=== PATIENT | female | born 1985 | race African-American/Black ===

== ENCOUNTER 2016-07-26 22:36 | Emergency (ER) | payer SELFPAY ==
[~2016-07-26] VITALS: Ht 170.2 cm; Wt 72.0 kg
[~2016-07-26 22:36] MED LIST: CARB200T PO; MUPI2%T TOP; TRAM50TA PO
[2016-07-26 22:42] VITALS: PULSE 94; RESP 22; TEMP 99.1; O2SAT 100
[2016-07-26] MEDS ORDERED: DEXTLIQ44 (22:48)
[2016-07-26] MEDS ORDERED: SODIUM CHLORIDE 0.9% FLUSH 10 ML FLUSH IVF PRN (23:00)
[2016-07-26] MEDS ORDERED: LORazepam 2 MG/ML VIAL IV PUSH ONE ×2 (23:00→23:30)
[2016-07-26 23:10] LABS: AUTOMATED NEUTROPHIL # 7.2 TH/MM3 (1.8-7.7); BASOPHIL # 0.1 TH/MM3 (0-0.2); BASOPHIL % 0.6 % (0.0-2.0); EOSINOPHIL % 0.2 % (0.0-4.0); HEMATOCRIT 34.5 % (35.0-46.0); HEMO FLAGS DIFF FINAL; LYMPH % 15.7 % (9.0-44.0); LYMPHOCYTE # 1.5 TH/MM3 (1.0-4.8); MEAN CELL VOLUME 80.2 FL (80.0-100.0); MEAN CORPUSCULAR HEMOGLOBIN 26.8 PG (27.0-34.0); MEAN CORPUSCULAR HGB CONC 33.4 % (32.0-36.0); MONO % 7.3 % (0.0-8.0); NEUT % 76.2 % (16.0-70.0); PLATELET COUNT 341 TH/MM3 (150-450); RED BLOOD COUNT 4.31 MIL/MM3 (4.00-5.30); RED CELL DISTRIBUTION WIDTH 20.1 % (11.6-17.2); WHITE BLOOD COUNT 9.5 TH/MM3 (4.0-11.0)
--- NOTE | 2016-07-26 23:12 | PD ---
HPI Chief Complaint: Cold / Flu Symptoms Time Seen by Provider: 22:57 Travel History International Travel<30 days: No Contact w/Intl Traveler<30days: No Traveled to known affect area: No History of Present Illness HPI Patient is a 31-year-old female presents emergency department by EMS for evaluation of shortness of breath. Patient states she thought she just had a "summer cold" which is been gradually worsening over the past few days. She states that she had fairly significant shortness of breath this evening as well as some tightness in her chest. Patient denies any fevers. Endorses cough and congestion as well as stuffy nose. States she has a history of asthma and anxiety. Denies any history of hormonal contraception use long periods of stasis or long trips. Denies a history of blood clots in her chest or her lungs. Has not tried any interventions prior to arrival. PFSH Past Medical History Anxiety: Yes Diminished Hearing: No Hypertension: Yes Migraines: Yes ?: Not LMP: [id number] : 0 Para: 0 Miscarriage: 0 : 0 Past Surgical History Oral Surgery: Yes (DENTAL) Social History Alcohol Use: No Tobacco Use: Yes (cigars and e-cig) Substance Use: Yes ([facility]) Allergies-Medications (Allergen,Severity, Reaction): Coded Allergies: Lortab (Verified Adverse Reaction, Intermediate, HEADACHE, NAUSEA, VOMITING, 01/06/15) Reported Meds & Prescriptions Reported Meds & Active Scripts Active Tramadol (Tramadol HCl) 50 Mg Tab 50 Mg PO Q6H PRN Carbamazepine 200 Mg Tab 200 Mg PO BID Bactroban 2% Cream (15gm) (Mupirocin) 15 Gm Cr 1 Applic TOP TID 7 Days APPLY TO AFFECTED AREA Reported Day Time Cold-Flu Liquid (D-Methorphan/PE/Acetaminophen) 237 Ml Liquid Review of Systems Except as stated in HPI: all other systems reviewed are Neg Physical Exam Narrative GENERAL: Well-developed well-nourished, anxious, sitting forward mildly uncomfortable. SKIN: Focused skin assessment warm/dry. HEAD: Atraumatic. Normocephalic. EYES: Pupils equal and round. No scleral icterus. No injection or drainage. ENT: No nasal bleeding or discharge. Mucous membranes pink and moist. NECK: Trachea midline. No JVD. CARDIOVASCULAR: Regular rate and rhythm. No murmur appreciated. RESPIRATORY: No accessory muscle use. Clear to auscultation. Breath sounds equal bilaterally. Good air entry bilaterally, no wheezes. No rales. There is some moderate chest wall tenderness particularly on the right side. GASTROINTESTINAL: Abdomen soft, non-tender, nondistended. Hepatic and splenic margins not palpable. MUSCULOSKELETAL: No obvious deformities. No clubbing. No cyanosis. No edema. NEUROLOGICAL: Awake and alert. No obvious cranial nerve deficits. Motor grossly within normal limits. Normal speech. PSYCHIATRIC: Anxious mood and affect.; insight and judgment normal. Data Data Last Documented VS Vital Signs Date Time Temp Pulse Resp B/P Pulse Ox O2 Delivery O2 Flow Rate FiO2 07/27/16 01:27 92 14 144/66 99 Room Air 07/27/16 00:49 21 07/26/16 22:42 99.1 Orders Electrocardiogram (07/26/16 22:58) Basic Metabolic Panel (Bmp) (07/26/16 22:58) Ckmb (Isoenzyme) Profile (07/26/16 22:58) Complete Blood Count With Diff (07/26/16 22:58) Comprehensive Metabolic Panel (07/26/16 22:58) D-Dimer (07/26/16 22:58) Magnesium (Mg) (07/26/16 22:58) Prothrombin Time / Inr (Pt) (07/26/16 22:58) Act Partial Throm Time (Ptt) (07/26/16 22:58) Troponin I (07/26/16 22:58) Chest, Single Ap (07/26/16 22:58) Ecg Monitoring (07/26/16 22:58) Iv Access Insert/Monitor (07/26/16 22:58) Oximetry (07/26/16 22:58) Oxygen Administration (07/26/16 22:58) Sodium Chloride 0.9% Flush (Ns Flush) (07/26/16 23:00) Lorazepam Inj (Ativan Inj) (07/26/16 23:00) Lorazepam Inj (Ativan Inj) (07/26/16 23:30) Albuterol-Ipratropium Neb (Duoneb Neb) (07/26/16 23:30) Ct Pulmonary Angiogram (07/26/16 ) Iohexol 350 Inj (Omnipaque 350 Inj) (07/27/16 00:51) Labs Laboratory Tests Test 07/26/16 23:00 White Blood Count 9.5 TH/MM3 Red Blood Count 4.31 MIL/MM3 Hemoglobin 11.5 GM/DL Hematocrit 34.5 % Mean Corpuscular Volume 80.2 FL Mean Corpuscular Hemoglobin 26.8 PG Mean Corpuscular Hemoglobin 33.4 % Concent Red Cell Distribution Width 20.1 % Platelet Count 341 TH/MM3 Mean Platelet Volume 8.8 FL Neutrophils (%) (Auto) 76.2 % Lymphocytes (%) (Auto) 15.7 % Monocytes (%) (Auto) 7.3 % Eosinophils (%) (Auto) 0.2 % Basophils (%) (Auto) 0.6 % Neutrophils # (Auto) 7.2 TH/MM3 Lymphocytes # (Auto) 1.5 TH/MM3 Monocytes # (Auto) 0.7 TH/MM3 Eosinophils # (Auto) 0.0 TH/MM3 Basophils # (Auto) 0.1 TH/MM3 CBC Comment DIFF FINAL Differential Comment Prothrombin Time 11.4 SEC Prothromb Time International 1.0 RATIO Ratio Activated Partial 34.4 SEC Thromboplast Time D-Dimer Quantitative (PE/DVT) 0.61 MG/L FEU Sodium Level 139 MEQ/L Potassium Level 3.2 MEQ/L Chloride Level 105 MEQ/L Carbon Dioxide Level 22.0 MEQ/L Anion Gap 12 MEQ/L Blood Urea Nitrogen 5 MG/DL Creatinine 1.04 MG/DL Estimat Glomerular Filtration 74 ML/MIN Rate Random Glucose 77 MG/DL Calcium Level 9.1 MG/DL Magnesium Level 1.7 MG/DL Total Bilirubin 0.2 MG/DL Aspartate Amino Transf 19 U/L (AST/SGOT) Alanine Aminotransferase 14 U/L (ALT/SGPT) Alkaline Phosphatase 83 U/L Total Creatine Kinase 83 U/L Troponin I LESS THAN 0.02 NG/ML Total Protein 8.3 GM/DL Albumin 4.0 GM/DL MDM Medical Decision Making Medical Screen Exam Complete: Yes Emergency Medical Condition: Yes Interpretation(s) EKG shows normal sinus rhythm at a rate of 87, normal axis and normal R-wave progression. No concerning ST-T changes. Intervals within normal limits. This is a normal EKG. Differential Diagnosis Asthma exacerbation, PE, anxiety attack, ACS highly unlikely. Narrative Course Patient roomed in the emergency department, d-dimer weakly at 0.6. CT PE examination ordered shows no abnormality.. EKG troponin basic labs are reassuring. Was given duo neb and Ativan. On reassessment she is feeling significant really better after Ativan. Lung sounds were clear. Initial workup other than that weakly positive d-dimer was negative. Discussed follow-up with primary care physician and [facility]. Discussed return to ED criteria. She stable for discharge at this time. Diagnosis Primary Impression: Shortness of breath Referrals: [facility] Additional Instructions: Follow-up with the [facility] or your primary care physician. Disposition: 01 DISCHARGE HOME Condition: Stable Wilfredo Brown MD July 26, 2016 23:12
--- NOTE | 2016-07-26 23:25 | RADRPT ---
EXAM DATE/TIME: 07/26/2016 22:55 [facility] COMPARISON: No previous studies available for comparison. INDICATIONS : SOB starting tonight. MEDICAL HISTORY : Hypertension. SURGICAL HISTORY : None. ENCOUNTER: Initial ACUITY: 1 day PAIN SCORE: 6/10 LOCATION: Bilateral chest FINDINGS: A single view of the chest demonstrates the lungs to be symmetrically aerated without evidence of mas s, infiltrate or effusion. The cardiomediastinal contours are unremarkable. Osseous structures are intact. CONCLUSION: Normal examination. Matt Green MD on July 26, 2016 at 23:24 Board Certified Radiologist. This report was verified electronically.
[2016-07-26] MEDS ORDERED: RESP: ALBUTEROL 2.5 MG/IPRATROPIUM 0.5 MG NEB (SCH) NEB ONE (23:30)
[2016-07-26 23:37] LABS: ANION GAP 12 MEQ/L (5-15); AST (GOT) 19 U/L (15-37); BLOOD UREA NITROGEN 5 MG/DL (7-18); CHLORIDE 105 MEQ/L (98-107); GLOMERULAR FILTRATION RATE 74 ML/MIN (>89); MAGNESIUM 1.7 MG/DL (1.5-2.5); POTASSIUM 3.2 MEQ/L (3.5-5.1); SODIUM (NA) 139 MEQ/L (136-145)
[2016-07-26 23:42] LABS: APTT (PATIENT) 34.4 SEC (24.3-30.1); PROTHROMBIN TIME - PATIENT 11.4 SEC (9.8-11.6)
[2016-07-26 23:46] LABS: ALKALINE PHOSPHATASE 83 U/L (45-117); ALT (GPT) 14 U/L (10-53); TOTAL BILIRUBIN ADULT 0.2 MG/DL (0.2-1.0)
[2016-07-26 23:47] LABS: CREATINE KINASE 83 U/L (26-192)
[2016-07-27 00:35] VITALS: BP 136/68; PULSE 89; RESP 18; O2SAT 99
[2016-07-27 00:49] VITALS: O2SAT 99
[2016-07-27] MEDS ORDERED: IOHEXOL 350 MG/ML 10 ML VIAL (for RAD DIAG) IV ONE (00:51)
--- NOTE | 2016-07-27 00:51 | RADRPT ---
EXAM DATE/TIME: 07/27/2016 00:27 [facility] COMPARISON: No previous studies available for comparison. INDICATIONS : Shortness of brreath IV CONTRAST: 70 cc Omnipaque 350 (iohexol) IV RADIATION DOSE: 19.23 CTDIvol (mGy) MEDICAL HISTORY : Hypertension. SURGICAL HISTORY : None. ENCOUNTER: Initial ACUITY: 1 day PAIN SCALE: 5/10 LOCATION: Chest TECHNIQUE: Volumetric scanning of the chest was performed using a pulmonary embolism protocol MIP images were re constructed. Using automated exposure control and adjustment of the mA and/or kV according to patien t size, radiation dose was kept as low as reasonably achievable to obtain optimal diagnostic quality images. FINDINGS: PULMONARY ARTERIES: No filling defects are seen in the pulmonary arteries through the segmental level. LUNGS: There is no consolidation or pneumothorax . No concerning pulmonary nodule is visualized. PLEURAE: There is no pleural thickening or pleural effusion. MEDIASTINUM: There is good visualization of the great vessels of the middle mediastinum. No evidence of mediastin al or hilar adenopathy/mass. MUSCULOSKELETAL: Within normal limits for patient age. MISCELLANEOUS: The visualized upper abdominal organs demonstrate no acute abnormality. CONCLUSION: Normal examination. Matt Green MD on July 27, 2016 at 0:49 Board Certified Radiologist. This report was verified electronically.
[2016-07-27 01:27] VITALS: BP 144/66; PULSE 92; RESP 14; O2SAT 99
--- NOTE | 2016-07-27 16:30 | EKG ---
Date Performed: 07/26/2016 Time Performed: 23:10:47 PTAGE: 31 years EKG: Sinus rhythm NORMAL ECG Since PREVIOUS TRACING 01/06/2015, no significant change. PREVIOUS TRACIN01/06/2015 02.46 DOCTOR: Zach Calderon Interpretating Date/Time 07/27/2016 16:30:16
== END 2016-07-27 01:57 | disposition home or self-care (01) ==
LOC: NEPD 22:36
DX: R06.02 Shortness of breath (principal); I10 Essential (primary) hypertension; F17.290 Nicotine dependence, other tobacco product, uncomplicated; Z79.899 Other long term (current) drug therapy
CPT/HCPCS: 71010; 71275; 80053; 82550; 83735; 84484; 85025; 85379; 85610; 85730; 93005; 94664; 96374; 99285; J2060; Q9967

== ENCOUNTER 2016-10-03 20:27 | Emergency (ER) | payer SELFPAY ==
[~2016-10-03] VITALS: Ht 170.2 cm; Wt 75.0 kg
[~2016-10-03 20:27] MED LIST changes: +DEXTLIQ44
[2016-10-03 20:29] VITALS: BP 131/86; PULSE 88; RESP 20; TEMP 98.3; O2SAT 98
[2016-10-03] MEDS ORDERED: SODIUM CHLOR 0.9% 1000 ML INJ 1,000 ML IV SCH (22:28)
[2016-10-03] MEDS ORDERED: ONDANSETRON HCL 4 MG/2 ML VIAL IVP ONE (22:30)
[2016-10-03] MEDS ORDERED: DICYCLOMINE HCL 20 MG/2 ML VIAL IM ONE (22:30)
[2016-10-03] MEDS ORDERED: SODIUM CHLORIDE 0.9% FLUSH 10 ML FLUSH IV FLUSH PRN (22:30)
--- NOTE | 2016-10-03 22:35 | PD ---
HPI Chief Complaint: Abdominal Pain Time Seen by Provider: 22:28 Travel History International Travel<30 days: No Contact w/Intl Traveler<30days: No Traveled to known affect area: No History of Present Illness HPI This is a 31-year-old female with no past medical history, presents today with points to left sided abdominal pain with radiation to her left flank. Patient states it started yesterday. She reports it as crampy in nature. She reports associated loose watery stools. She states she saw blood in her stool today. She denies any fevers or chills. She does report feeling weak. She denies a previous history of pain like this. She reports nausea with no vomiting. She denies any urinary symptoms i.e., dysuria, frequency. There are no other complaints time my examination. PFSH Past Medical History Anxiety: Yes Diminished Hearing: No Hypertension: Yes Migraines: Yes ?: Not LMP: 09/14/16 : 0 Para: 0 Miscarriage: 0 : 0 Past Surgical History Oral Surgery: Yes (DENTAL) Social History Alcohol Use: No Tobacco Use: Yes (cigars and e-cig) Substance Use: Yes ([facility]) Allergies-Medications (Allergen,Severity, Reaction): Coded Allergies: Lortab (Verified Adverse Reaction, Intermediate, HEADACHE, NAUSEA, VOMITING, 01/06/15) Reported Meds & Prescriptions Reported Meds & Active Scripts Active Cipro (Ciprofloxacin HCl) 500 Mg Tab 500 Mg PO BID Flagyl (Metronidazole) 500 Mg Tab 500 Mg PO TID Review of Systems Except as stated in HPI: all other systems reviewed are Neg General / Constitutional: No: Fever, Chills HENT: Positive: Lightheadedness, No: Headaches, Neck Pain Cardiovascular: No: Chest Pain or Discomfort, Palpitations, Irregular Rhythm Respiratory: No: Cough, Shortness of Breath Gastrointestinal: Positive: Nausea, Diarrhea, Abdominal Pain (left lateral), Other, No: Vomiting Genitourinary: Positive: Flank Pain (left), No: Frequency, Dysuria Musculoskeletal: No: Weakness, Pain Neurologic: No: Weakness, Dizziness, Headache Physical Exam Narrative GENERAL: Well-nourished, well-developed patient vomited in no acute distress. SKIN: Focused skin assessment warm/dry. HEAD: Normocephalic/atraumatic. EYES: No scleral icterus. No injection or drainage. NECK: Supple, trachea midline. No JVD or lymphadenopathy. CARDIOVASCULAR: Regular rate and rhythm without murmurs, gallops, or rubs. RESPIRATORY: Breath sounds equal bilaterally. No accessory muscle use. GASTROINTESTINAL: Abdomen soft, non-tender, nondistended. No rebound or guarding. Subjective pain in the left lateral and lower abdominal area. MUSCULOSKELETAL: No cyanosis, or edema. BACK: Nontender without obvious deformity. No CVA tenderness. Subjective pain in her left lower abdominal area that radiates to her left flank. NEUROLOGICAL: Awake and alert. Cranial nerves II through XII intact. Motor grossly within normal limits. Five out of 5 muscle strength in all muscle groups. Normal speech. Data Data Last Documented VS Vital Signs Date Time Temp Pulse Resp B/P Pulse Ox O2 Delivery O2 Flow Rate FiO2 10/04/16 00:25 62 18 142/94 100 Room Air 10/03/16 20:29 98.3 Orders Complete Blood Count With Diff (10/03/16 22:28) Comprehensive Metabolic Panel (10/03/16 22:28) Lipase (10/03/16 22:28) Urinalysis - C+S If Indicated (10/03/16 22:28) Iv Access Insert/Monitor (10/03/16 22:28) Ecg Monitoring (10/03/16 22:28) Oximetry (10/03/16 22:28) Ondansetron Inj (Zofran Inj) (10/03/16 22:30) Sodium Chlor 0.9% 1000 Ml Inj (Ns 1000 M (10/03/16 22:28) Sodium Chloride 0.9% Flush (Ns Flush) (10/03/16 22:30) Dicyclomine Inj (Bentyl Inj) (10/03/16 22:30) Ed Urine Pregnancytest Poc (10/03/16 22:28) Ct Abd/Pel W Iv Contrast(Rout) (10/03/16 23:47) Oral Contrast - Adult (10/03/16 23:49) Diatrizoate Liq ( Gastroview Liq) (10/03/16 23:55) Diatrizoate Liq ( Gastrocash Liq) (10/03/16 23:55) Iohexol 350 Inj (Omnipaque 350 Inj) (10/04/16 01:20) Ciprofloxacin (Cipro) (10/04/16 03:15) Metronidazole (Flagyl) (10/04/16 03:15) Mandatory Outpatient Referral (10/04/16 03:03) Labs Laboratory Tests Test 10/03/16 10/03/16 23:00 23:20 Urine Color YELLOW Urine Turbidity CLEAR Urine pH 5.5 Urine Specific [place] 1.009 Urine Protein NEG mg/dL Urine Glucose (UA) NEG mg/dL Urine Ketones 10 mg/dL Urine Occult Blood NEG Urine Nitrite NEG Urine Bilirubin NEG Urine Urobilinogen LESS THAN 2.0 MG/DL Urine Leukocyte Esterase LARGE Urine RBC 3 /hpf Urine WBC 6 /hpf Urine Squamous Epithelial 4 /hpf Cells Urine Mucus FEW /lpf Microscopic Urinalysis Comment CULT NOT INDICATED White Blood Count 10.4 TH/MM3 Red Blood Count 4.89 MIL/MM3 Hemoglobin 12.8 GM/DL Hematocrit 39.9 % Mean Corpuscular Volume 81.5 FL Mean Corpuscular Hemoglobin 26.1 PG Mean Corpuscular Hemoglobin 32.1 % Concent Red Cell Distribution Width 20.5 % Platelet Count 352 TH/MM3 Mean Platelet Volume 8.8 FL Neutrophils (%) (Auto) 66.9 % Lymphocytes (%) (Auto) 26.2 % Monocytes (%) (Auto) 5.6 % Eosinophils (%) (Auto) 0.7 % Basophils (%) (Auto) 0.6 % Neutrophils # (Auto) 6.9 TH/MM3 Lymphocytes # (Auto) 2.7 TH/MM3 Monocytes # (Auto) 0.6 TH/MM3 Eosinophils # (Auto) 0.1 TH/MM3 Basophils # (Auto) 0.1 TH/MM3 CBC Comment DIFF FINAL Differential Comment Sodium Level 136 MEQ/L Potassium Level 4.6 MEQ/L Chloride Level 102 MEQ/L Carbon Dioxide Level 23.2 MEQ/L Anion Gap 11 MEQ/L Blood Urea Nitrogen 7 MG/DL Creatinine 0.92 MG/DL Estimat Glomerular Filtration 85 ML/MIN Rate Random Glucose 74 MG/DL Calcium Level 9.3 MG/DL Total Bilirubin 0.4 MG/DL Aspartate Amino Transf 32 U/L (AST/SGOT) Alanine Aminotransferase 12 U/L (ALT/SGPT) Alkaline Phosphatase 80 U/L Total Protein 8.8 GM/DL Albumin 4.0 GM/DL Lipase 97 U/L MDM Medical Decision Making Medical Screen Exam Complete: Yes Emergency Medical Condition: Yes Interpretation(s) Last 24 hours Impressions Abdomen/Pelvis CT 10/03/16 1087 Signed Impressions: Service Date/Time: Tuesday, October 04, 2016 01:10 - CONCLUSION: 1. Wall thickening of descending colon characteristic of infectious or inflammatory colitis 2. Markedly enlarged fibroid uterus Junior Villanueva MD Differential Diagnosis Diverticulitis versus colitis versus gastroenteritis Narrative Course 31-year-old female presents with abdominal pain and lower left quadrant. Patient reports it radiates to her back. She reports watery stool with blood in it. Patient was heme positive here with Hemoccult testing. CT scan shows colitis. Given this, she'll be treated with Cipro and Flagyl for 10 days. He' ll be a mandatory referral placed for her for a GI physician. She is instructed to return if she does any worsening symptoms. She is also instructed to have a bland diet and advance as tolerated. Procedures Procedure Narrative Patient was able to provide a liquidy stool that was heme positive. Diagnosis Primary Impression: Colitis Additional Instructions: [place] diet, advance as tolerated. He will receive a call from a nurse for a mandatory referral to the gastroenterology doctors. Med/Other Pt SpecificInfo: Prescription(s) given Scripts Ciprofloxacin (Cipro)500 Mg [id number] Mg PO BID #20 TAB Ref 0 Prov:He Delong MD 10/04/16 Metronidazole (Flagyl)500 Mg [id number] Mg PO TID #30 TAB Ref 0 Prov:He Delong MD 10/04/16 Disposition: DISCHARGE HOME Condition: Stable He Delong MD Oct 03, 2016 22:35
[2016-10-03 23:28] VITALS: O2SAT 98
[2016-10-03 23:31] VITALS: BP 135/83; PULSE 54; RESP 18; O2SAT 100
[2016-10-03 23:40] LABS: AUTOMATED NEUTROPHIL # 6.9 TH/MM3 (1.8-7.7); BASOPHIL # 0.1 TH/MM3 (0-0.2); BASOPHIL % 0.6 % (0.0-2.0); EOSINOPHIL # 0.1 TH/MM3 (0-0.4); EOSINOPHIL % 0.7 % (0.0-4.0); HEMATOCRIT 39.9 % (35.0-46.0); HEMO FLAGS DIFF FINAL; LYMPH % 26.2 % (9.0-44.0); LYMPHOCYTE # 2.7 TH/MM3 (1.0-4.8); MEAN CELL VOLUME 81.5 FL (80.0-100.0); MEAN CORPUSCULAR HEMOGLOBIN 26.1 PG (27.0-34.0); MEAN CORPUSCULAR HGB CONC 32.1 % (32.0-36.0); MONO % 5.6 % (0.0-8.0); NEUT % 66.9 % (16.0-70.0); PLATELET COUNT 352 TH/MM3 (150-450); RED BLOOD COUNT 4.89 MIL/MM3 (4.00-5.30); RED CELL DISTRIBUTION WIDTH 20.5 % (11.6-17.2); WHITE BLOOD COUNT 10.4 TH/MM3 (4.0-11.0)
[2016-10-03] MEDS ORDERED: DIATRIZOATE MEGLUM/DIATRIZOATE SOD 9 ML CUP ONE ×2 (23:55)
[2016-10-04 00:14] LABS: BLOOD, URINE NEG (NEG); COMMENT (UR) CULT NOT INDICATED; CULTURE IF INDICATED CULT NOT INDICATED; GLUCOSE,URINE NEG (NEG); KETONE, URINE 10 mg/dL (NEG); MUCUS URINE FEW /lpf (OCC); NITRITE,URINE NEG (NEG); PH, URINE 5.5 (5.0-8.5); SQUAMOUS EPITHELIAL CELL URINE 4 /hpf (0-5); URINE COLOR YELLOW (YELLW/STRAW)
[2016-10-04 00:18] LABS: ALKALINE PHOSPHATASE 80 U/L (45-117); TOTAL BILIRUBIN ADULT 0.4 MG/DL (0.2-1.0)
[2016-10-04 00:25] VITALS: BP 142/94; PULSE 62; RESP 18; O2SAT 100
[2016-10-04 00:27] LABS: ALT (GPT) 12 U/L (10-53); ANION GAP 11 MEQ/L (5-15); AST (GOT) 32 U/L (15-37); BICARBONATE 23.2 MEQ/L (21.0-32.0); BLOOD UREA NITROGEN 7 MG/DL (7-18); CHLORIDE 102 MEQ/L (98-107); GLOMERULAR FILTRATION RATE 85 ML/MIN (>89); POTASSIUM 4.6 MEQ/L (3.5-5.1); SODIUM (NA) 136 MEQ/L (136-145)
[2016-10-04] MEDS ORDERED: IOHEXOL 350 MG/ML 10 ML VIAL (for RAD DIAG) IV ONE (01:20)
--- NOTE | 2016-10-04 02:10 | RADRPT ---
EXAM DATE/TIME: 10/04/2016 01:10 [facility] COMPARISON: No previous studies available for comparison. INDICATIONS : Right side abdominal pain and blood in stool. IV CONTRAST: 90 cc Omnipaque 350 (iohexol) IV ORAL CONTRAST: Prescribed oral contrast ingested. RADIATION DOSE: 6.84 CTDIvol (mGy) MEDICAL HISTORY : Hypertension. SURGICAL HISTORY : None. ENCOUNTER: Initial ACUITY: 1 day PAIN SCALE: 8/10 LOCATION: Right abdomen. TECHNIQUE: Volumetric scanning of the abdomen and pelvis was performed. Using automated exposure control and ad justment of the mA and/or kV according to patient size, radiation dose was kept as low as reasonably achievable to obtain optimal diagnostic quality images. DICOM format image data is available electro nically for review and comparison. FINDINGS: Examination of the lung bases demonstrates no abnormality. No pleural fluid is identified. No pulmona ry nodules are present. Multiple small subcentimeter hepatic cysts are present. The spleen is normal in size and free of focal defects. The gallbladder and pancreas are unremarkable. No intrahepatic or extrahepatic ductal dilatation is seen. The adrenal glands and kidneys appear normal bilaterally. No hydronephrosis or mass lesions are identified. There is diffuse wall thickening involving the colon f rom the splenic flexure to the sigmoid colon. There is no evidence of abscess. No free fluid is ident ified. Examination of the pelvis demonstrates no evidence of free fluid or pelvic mass. No abnormally enlarg ed inguinal or retroperitoneal lymph nodes are present. The bladder is unremarkable. The uterus is ma rkedly enlarged measuring 13 x 9 CM characteristic of fibroids. CONCLUSION: 1. Wall thickening of descending colon characteristic of infectious or inflammatory colitis 2. Markedly enlarged fibroid uterus Junior Villanueva MD on October 04, 2016 at 2:06 Board Certified Radiologist. This report was verified electronically.
[2016-10-04] MEDS ORDERED: METR-1 PO (03:02)
[2016-10-04] MEDS ORDERED: CIPR-9 PO (03:02)
[2016-10-04 03:10] VITALS: BP 135/88
[2016-10-04] MEDS ORDERED: CIPROFLOXACIN 500 MG TAB PO ONE (03:15)
[2016-10-04] MEDS ORDERED: metroNIDAZOLE 500 MG TAB PO ONE (03:15)
== END 2016-10-04 03:18 | disposition home or self-care (01) ==
LOC: NEPE 20:27
DX: K52.9 Noninfective gastroenteritis and colitis, unspecified (principal); I10 Essential (primary) hypertension; F17.290 Nicotine dependence, other tobacco product, uncomplicated; F12.10 Cannabis abuse, uncomplicated
CPT/HCPCS: 74177; 80053; 81001; 83690; 84703; 85025; 96374; 99285; J0500; J2405; J7030; Q9963; Q9967

== ENCOUNTER 2017-02-09 02:07 | Emergency (ER) | payer SELFPAY ==
[~2017-02-09 02:07] MED LIST changes: -CARB200T PO; +CIPR-9 PO; -DEXTLIQ44; +METR-1 PO; -MUPI2%T TOP; -TRAM50TA PO
[2017-02-09 02:10] VITALS: BP 132/89; PULSE 116; RESP 16; TEMP 98.9; O2SAT 100
[2017-02-09] MEDS ORDERED: MORPHINE SULFATE 4 MG/ML INJ IV PUSH ONE (02:45)
[2017-02-09] MEDS ORDERED: DEXAMETHASONE SOD PHOS 20 MG/5 ML VIAL IV PUSH ONE (02:45)
[2017-02-09] MEDS ORDERED: ONDANSETRON HCL 4 MG/2 ML VIAL IV PUSH ONE (02:45)
[2017-02-09] MEDS ORDERED: CARBXR200 PO (02:53)
[2017-02-09] MEDS ORDERED: TRAM50 PO (02:53)
--- NOTE | 2017-02-09 02:54 | PD ---
HPI . Left facial pain Chief Complaint: Facial Pain or Swelling Time Seen by Provider: 02:40 Travel History International Travel<30 days: No Contact w/Intl Traveler<30days: No Traveled to known affect area: No History of Present Illness HPI Patient presents with a chief complaint of left facial pain. Onset was at 3 PM. She states that she had similar pain approximately a year ago and was diagnosed with trigeminal neuralgia. She states that the pain today is exactly the same. She describes it as a sharp, shooting, shocklike pain on the left side of her face. The pain is severe. The pain is actually exacerbated by laying on her right cheek. She took a leftover Tegretol at about 10 PM with no relief of her pain. She states that she was treated with Tegretol and possibly steroids which she had the seat year ago. She states that she had no further problems following the initiation of therapy until today. PFSH Past Medical History Anxiety: Yes Diminished Hearing: No Hypertension: Yes Migraines: Yes Tetanus Vaccination: Unknown Influenza Vaccination: No ?: Not LMP: 02/08/2017 : 0 Para: 0 Miscarriage: 0 : 0 Past Surgical History Oral Surgery: Yes (DENTAL) Social History Alcohol Use: No Tobacco Use: Yes (cigars and e-cig) Substance Use: Yes (MARAJUANA) Allergies-Medications (Allergen,Severity, Reaction): Coded Allergies: acetaminophen (Unverified Adverse Reaction, Intermediate, HEADACHE, NAUSEA , VOMITING, 02/09/17) hydrocodone (Unverified Adverse Reaction, Intermediate, HEADACHE, NAUSEA, VOMITING, 02/09/17) Reported Meds & Prescriptions Reported Meds & Active Scripts Active Review of Systems Except as stated in HPI: all other systems reviewed are Neg Physical Exam Narrative GENERAL: Awake and alert. She is tearful. SKIN: Warm and dry. HEAD: Normocephalic/atraumatic. EYES: Pupils are equal. Extraocular movements are intact. ENT: Percussion of the left side of her face just inferior to the TMJ reproduces shocklike pain in her face. NECK: Normal range of motion. CARDIOVASCULAR: Regular rate and rhythm. RESPIRATORY: Nonlabored respirations. MUSCULOSKELETAL: Atraumatic. NEUROLOGICAL: Nonfocal. PSYCHIATRIC: Appropriate mood and affect. Data Data Last Documented VS Vital Signs Date Time Temp Pulse Resp B/P (MAP) Pulse Ox O2 Delivery O2 Flow Rate FiO2 12/10/17 02:10 98.9 116 16 132/89 (103) 100 Room Air Orders Orders Dexamethasone Inj (Decadron Inj) (02/09/17 02:45) Morphine Inj (Morphine Inj) (02/09/17 02:45) Ondansetron Inj (Zofran Inj) (02/09/17 02:45) ^ Saline Lock (02/09/17 02:40) MDM Medical Decision Making Medical Screen Exam Complete: Yes Emergency Medical Condition: Yes Medical Record Reviewed: Yes (patient was seen here on 02/01/16 with the same complaints. She was treated with Tegretol 200 mg twice a day and tramadol as needed for pain.) Differential Diagnosis Differential diagnosis includes but is not limited to TMJ, dental pain, shingles , trigeminal neuralgia Narrative Course This patient presents with the acute onset of left facial pain. The pain feels just like previous trigeminal neuralgia. She will be treated emergency department with IV morphine, Decadron and Zofran. I will discharge her with prescriptions for Tegretol and Ultram. Diagnosis Primary Impression: Trigeminal neuralgia of left side of face Referrals: Bo Gómez MD Patient Instructions: General Instructions, Narcotic given in the ED, Trigeminal Neuralgia (DC) Med/Other Pt SpecificInfo: Prescription(s) given Scripts Tramadol (Ultram) 50 Mg Tab 50 MG PO Q4H Y for PAIN, #12 TAB 0 Refills Prov: Lisa Soto MD 02/09/17 Carbamazepine ER 12 HR (Tegretol-Xr 12 HR) 200 Mg Tab 200 MG PO Q12HR for facial pain, #60 TAB 0 Refills Prov: Lisa Soto MD 02/09/17 Disposition: 01 DISCHARGE HOME Condition: Stable Lisa Soto MD Feb 09, 2017 02:54
[2017-02-09 03:40] VITALS: BP 117/62
== END 2017-02-09 03:48 | disposition home or self-care (01) ==
LOC: NEPE 02:07
DX: G50.0 Trigeminal neuralgia (principal); F41.9 Anxiety disorder, unspecified; I10 Essential (primary) hypertension; F17.290 Nicotine dependence, other tobacco product, uncomplicated; Z88.6 Allergy status to analgesic agent; Z88.5 Allergy status to narcotic agent
CPT/HCPCS: 96374; 96375; 99284; J1100; J2270; J2405

== ENCOUNTER 2017-02-11 21:23 | Emergency (ER) | payer SELFPAY ==
[~2017-02-11] VITALS: Ht 167.6 cm; Wt 76.0 kg
[~2017-02-11 21:23] MED LIST changes: +CARBXR200 PO; -CIPR-9 PO; -METR-1 PO; +TRAM50 PO
[2017-02-11 21:25] VITALS: BP 144/98; PULSE 109; RESP 18; TEMP 98.3; O2SAT 100
[2017-02-11] MEDS ORDERED: PROCHLORPERAZINE INJ 10 MG/2 ML VIAL IV PUSH ONE (22:00)
[2017-02-11] MEDS ORDERED: SODIUM CHLOR 0.9% 1000 ML INJ 1,000 ML IV ONE (22:00)
[2017-02-11] MEDS ORDERED: diphenhydrAMINE HCL 50 MG/ML VIAL IV PUSH ONE (22:00)
[2017-02-11] MEDS ORDERED: KETOROLAC TROMETHAMINE 30 MG/ML (IVP) VIAL IV PUSH ONE (22:00)
[2017-02-11 22:41] LABS: AUTOMATED NEUTROPHIL # 6.4 TH/MM3 (1.8-7.7); BASOPHIL % 0.2 % (0.0-2.0); EOSINOPHIL % 0.3 % (0.0-4.0); HEMO FLAGS DIFF FINAL; LYMPH % 33.1 % (9.0-44.0); LYMPHOCYTE # 3.6 TH/MM3 (1.0-4.8); MEAN CELL VOLUME 79.2 FL (80.0-100.0); MEAN CORPUSCULAR HEMOGLOBIN 25.9 PG (27.0-34.0); MEAN CORPUSCULAR HGB CONC 32.7 % (32.0-36.0); MONO % 6.8 % (0.0-8.0); NEUT % 59.6 % (16.0-70.0); PLATELET COUNT 525 TH/MM3 (150-450); RED BLOOD COUNT 4.16 MIL/MM3 (4.00-5.30); WHITE BLOOD COUNT 10.8 TH/MM3 (4.0-11.0)
[2017-02-11 23:11] LABS: ALKALINE PHOSPHATASE 75 U/L (45-117); ALT (GPT) 14 U/L (10-53); ANION GAP 9 MEQ/L (5-15); AST (GOT) 15 U/L (15-37); BICARBONATE 25.7 MEQ/L (21.0-32.0); BLOOD UREA NITROGEN 10 MG/DL (7-18); CHLORIDE 102 MEQ/L (98-107); GLOMERULAR FILTRATION RATE 94 ML/MIN (>89); SODIUM (NA) 137 MEQ/L (136-145); TOTAL BILIRUBIN ADULT 0.2 MG/DL (0.2-1.0)
[2017-02-11 23:12] VITALS: RESP 16
[2017-02-11 23:18] LABS: POTASSIUM 2.9 MEQ/L (3.5-5.1)
[2017-02-11] MEDS ORDERED: POTASSIUM CHLORIDE 10 MEQ CONTROLLED RELEASE TAB PO ONE (23:30)
[2017-02-11] MEDS ORDERED: FIORINAL2 PO (23:46)
--- NOTE | 2017-02-11 23:46 | PD ---
HPI Chief Complaint: Neuro Symptoms/ Deficits Time Seen by Provider: 21:42 Travel History International Travel<30 days: No Contact w/Intl Traveler<30days: No Traveled to known affect area: No History of Present Illness HPI Patient is a 31 year old female who comes in complaining of pain to the left side of her face. She says she was told she had trigeminal neuralgia year ago when she had similar symptoms. She is given Tegretol and tramadol at the time. She says after the event, she didn't have any further problems with that, so she has not been taking any medications for it. She also has history of migraines in the past. She was here a few days ago for the same thing and was given Tylenol and tramadol, which she says are not helping. She says the pain is behind her left eye and her left side of her neck. She does admit to being under a lot of stress currently. She denies fever or chills. She denies any head trauma. PFSH Past Medical History Anxiety: Yes Diminished Hearing: No Hypertension: Yes Immunizations Current: Yes Migraines: Yes Tetanus Vaccination: Unknown Influenza Vaccination: No ?: Not LMP: 02/08/17 : 0 Para: 0 Miscarriage: 0 : 0 Past Surgical History Oral Surgery: Yes (DENTAL) Social History Alcohol Use: No Tobacco Use: Yes (cigars and e-cig) Sub[facility] Use: Yes ([facility]) Allergies-Medications (Allergen,Severity, Reaction): Coded Allergies: acetaminophen (Unverified Adverse Reaction, Intermediate, HEADACHE, NAUSEA , VOMITING, 02/11/17) hydrocodone (Unverified Adverse Reaction, Intermediate, HEADACHE, NAUSEA, VOMITING, 02/11/17) Reported Meds & Prescriptions Reported Meds & Active Scripts Active Ultram (Tramadol HCl) 50 Mg Tab 50 Mg PO Q4H PRN Tegretol-Xr 12 HR (Carbamazepine) 200 Mg Tab 200 Mg PO Q12HR Review of Systems Except as stated in HPI: all other systems reviewed are Neg General / Constitutional: No: Fever, Chills Eyes: No: Blurred Vision HENT: Positive: Headaches Cardiovascular: No: Chest Pain or Discomfort Respiratory: No: Shortness of Breath Gastrointestinal: No: Nausea, Vomiting Musculoskeletal: Positive: Pain Skin: No Rash Neurologic: No: Weakness, Dizziness, Syncope Physical Exam Narrative GENERAL: Awake and alert, in no acute distress. SKIN: Focused skin assessment warm/dry. HEAD: Atraumatic. Normocephalic. EYES: Pupils equal and round and reactive. No scleral icterus. Extraocular movements intact. ENT: Mucous membranes pink and moist. NECK: Trachea midline. No JVD. Tender to palpation of the right trapezius muscle. CARDIOVASCULAR: Regular rate and rhythm. No murmur appreciated. RESPIRATORY: No accessory muscle use. Clear to auscultation. Breath sounds equal bilaterally. MUSCULOSKELETAL: No obvious deformities. No clubbing. No cyanosis. No edema. NEUROLOGICAL: Awake and alert. No obvious cranial nerve deficits. Motor grossly within normal limits. Normal speech. PSYCHIATRIC: Appropriate mood and affect; insight and judgment normal. Data Data Last Documented VS Vital Signs Date Time Temp Pulse Resp B/P (MAP) Pulse Ox O2 Delivery O2 Flow Rate FiO2 02/11/17 23:12 16 02/11/17 21:25 98.3 109 144/98 (113) 100 Room Air Orders Orders Iv Access Insert/Monitor (02/11/17 21:59) Complete Blood Count With Diff (02/11/17 21:59) Comprehensive Metabolic Panel (02/11/17 21:59) Ed Urine Pregnancytest Poc (02/11/17 21:59) Diphenhydramine Inj (Benadryl Inj) (02/11/17 22:00) Ketorolac Inj (Toradol Inj) (02/11/17 22:00) Prochlorperazine Inj (Compazine Inj) (02/11/17 22:00) Sodium Chlor 0.9% 1000 Ml Inj (Ns 1000 M (02/11/17 22:00) Potassium Chloride (Kcl) (02/11/17 23:30) Labs Laboratory Tests Test 02/11/17 22:30 White Blood Count 10.8 TH/MM3 Red Blood Count 4.16 MIL/MM3 Hemoglobin 10.8 GM/DL Hematocrit 33.0 % Mean Corpuscular Volume 79.2 FL Mean Corpuscular Hemoglobin 25.9 PG Mean Corpuscular Hemoglobin Concent 32.7 % Red Cell Distribution Width 19.0 % Platelet Count 525 TH/MM3 Mean Platelet Volume 7.6 FL Neutrophils (%) (Auto) 59.6 % Lymphocytes (%) (Auto) 33.1 % Monocytes (%) (Auto) 6.8 % Eosinophils (%) (Auto) 0.3 % Basophils (%) (Auto) 0.2 % Neutrophils # (Auto) 6.4 TH/MM3 Lymphocytes # (Auto) 3.6 TH/MM3 Monocytes # (Auto) 0.7 TH/MM3 Eosinophils # (Auto) 0.0 TH/MM3 Basophils # (Auto) 0.0 TH/MM3 CBC Comment DIFF FINAL Differential Comment Blood Urea Nitrogen 10 MG/DL Creatinine 0.84 MG/DL Random Glucose 84 MG/DL Total Protein 8.6 GM/DL Albumin 3.9 GM/DL Calcium Level 8.6 MG/DL Alkaline Phosphatase 75 U/L Aspartate Amino Transf (AST/SGOT) 15 U/L Alanine Aminotransferase (ALT/SGPT) 14 U/L Total Bilirubin 0.2 MG/DL Sodium Level 137 MEQ/L Potassium Level 2.9 MEQ/L Chloride Level 102 MEQ/L Carbon Dioxide Level 25.7 MEQ/L Anion Gap 9 MEQ/L Estimat Glomerular Filtration Rate 94 ML/MIN [facility] Medical Decision Making Medical Screen Exam Complete: Yes Emergency Medical Condition: Yes Medical Record Reviewed: Yes Differential Diagnosis Migraine versus tension headache versus trigeminal neuralgia Narrative Course Patient is a 31-year-old female comes in complaining of pain to the left side of her head and neck. Exam shows tenderness to the trapezius muscle. IV established, labs sent. Labs show potassium to be low, this was replaced. Patient given migraine cocktail of Toradol, Compazine, Benadryl, IV fluids. She reports feeling better. I advised that this may be a migraine rather than trigeminal neuralgia. She'll be discharged with prescription for Fioricet. Referral placed to neurology. Patient advised to follow-up at the [facility]. Advised to return to the ED as needed for any worsening symptoms. Diagnosis Primary Impression: Headache Qualified Codes: R51 - Headache Patient Instructions: Acute Headache (ED), General Instructions Additional Instructions: Follow-up with a primary care doctor and neurology. Take pain medicine as needed. Drink plenty of fluids. Return to the ED as needed for any worsening symptoms. Scripts Cltslqdxdi-Ecjdyra-Hojnkvex (Fiorinal) 50-325-40 Mg Cap 1 CAP PO Q4H Y for HEADACHE, #10 CAP 0 Refills Do not exceed 6 capsules/day. Prov: Radha Leija MD 02/11/17 Disposition: 01 DISCHARGE HOME Condition: Stable Radha Leija MD Feb 11, 2017 23:46
== END 2017-02-12 00:12 | disposition home or self-care (01) ==
LOC: NEPE 21:23
DX: R51 Headache (principal); I10 Essential (primary) hypertension; F41.9 Anxiety disorder, unspecified; F12.90 Cannabis use, unspecified, uncomplicated; Z79.1 Long term (current) use of non-steroidal anti-inflammatories (NSAID); Z79.899 Other long term (current) drug therapy; Z72.0 Tobacco use; Z88.6 Allergy status to analgesic agent
CPT/HCPCS: 80053; 84703; 85025; 96361; 96374; 96375; 99284; J0780; J1200; J1885; J7030

== ENCOUNTER 2017-08-14 18:29 | Emergency (ER) | payer SELFPAY ==
[~2017-08-14] VITALS: Ht 170.2 cm; Wt 76.0 kg
[~2017-08-14 18:29] MED LIST changes: +FIORINAL2 PO
[2017-08-14 20:15] VITALS: BP 160/97; PULSE 80; RESP 20; TEMP 98.4; O2SAT 100
--- NOTE | 2017-08-14 20:21 | PD ---
HPI Chief Complaint: Cold / Flu Symptoms Time Seen by Provider: 20:21 Travel History International Travel<30 days: No Contact w/Intl Traveler<30days: No Traveled to known affect area: No History of Present Illness HPI 32-year-old female presents emergency department for evaluation of sore throat, cough, head congestion worsening over the last week. She states she also has been nauseous. She is uncertain of fever chills. Denies any chest pain or tightness. She denies any diarrhea. She denies any other symptoms at this time. PFSH Past Medical History Anxiety: Yes Diminished Hearing: No Hypertension: Yes Immunizations Current: Yes Migraines: Yes Tetanus Vaccination: Unknown Influenza Vaccination: No ?: Not : 0 Para: 0 Miscarriage: 0 : 0 Past Surgical History Oral Surgery: Yes (DENTAL) Social History Alcohol Use: No Tobacco Use: Yes (cigars and e-cig) Substance Use: Yes ([facility]) Allergies-Medications (Allergen,Severity, Reaction): Coded Allergies: acetaminophen (Unverified Adverse Reaction, Intermediate, HEADACHE, NAUSEA , VOMITING, 08/14/17) hydrocodone (Unverified Adverse Reaction, Intermediate, HEADACHE, NAUSEA, VOMITING, 08/14/17) Reported Meds & Prescriptions Reported Meds & Active Scripts Active Proair Hfa 8.5 GM Inh (Albuterol Sulfate) 90 Mcg/Act Aer 2 Puff INH Q4HR PRN 108 mcg/actuation Medrol Dosepak (Methylprednisolone) 4 Mg Dspk 4 Mg PO DIRECTED Per Pharmacist direction Review of Systems Except as stated in HPI: all other systems reviewed are Neg Physical Exam Narrative GENERAL: Well-nourished female patient, no acute distress. SKIN: Focused skin assessment warm/dry. HEAD: Atraumatic. Normocephalic. EYES: Pupils equal and round. No scleral icterus. No injection or drainage. ENT: No nasal bleeding or discharge. Mucous membranes pink and moist. Pharynx with erythema. No significant exudate. NECK: Trachea midline. No JVD. CARDIOVASCULAR: Regular rate and rhythm. No murmur appreciated. RESPIRATORY: No accessory muscle use. Clear to auscultation. Breath sounds equal bilaterally. GASTROINTESTINAL: Abdomen soft, non-tender, nondistended. Hepatic and splenic margins not palpable. MUSCULOSKELETAL: No obvious deformities. No clubbing. No cyanosis. No edema. NEUROLOGICAL: Awake and alert. No obvious cranial nerve deficits. Motor grossly within normal limits. Normal speech. PSYCHIATRIC: Appropriate mood and affect; insight and judgment normal. Data Data Last Documented VS Vital Signs Date Time Temp Pulse Resp B/P (MAP) Pulse Ox O2 Delivery O2 Flow Rate FiO2 08/14/17 21:47 08/14/17 20:25 81 16 100 Room Air 08/14/17 20:15 98.4 Orders Orders Chest, Pa & Lat (08/14/17 ) Dexamethasone Inj (Decadron Inj) (08/14/17 20:45) Albuterol-Ipratropium Neb (Duoneb Neb) (08/14/17 20:45) Ed Discharge Order (08/14/17 21:44) Electrocardiogram (08/14/17 19:28) [facility] Medical Decision Making Medical Screen Exam Complete: Yes Emergency Medical Condition: Yes Medical Record Reviewed: Yes Differential Diagnosis URI viral versus bacterial versus pharyngitis versus sinusitis Narrative Course 32-year-old female presents emergency department for evaluation. Patient appears without distress. Vital signs are stable. Last Impressions Chest X-Ray 08/14/17 0000 Signed Impressions: CONCLUSION: No acute cardiopulmonary disease Patient appears well. She will be discharged home with symptom management. She is encouraged to follow-up with primary care provider return immediately with acute worsening symptoms per Diagnosis Primary Impression: Chest wall pain Additional Impression: URI (upper respiratory infection) Qualified Codes: J06.9 - Acute upper respiratory infection, unspecified Referrals: [facility] Primary Care Physician Patient Instructions: General Instructions Additional Instructions: Humidified air may help to alleviate symptoms Follow-up with a primary care provider Return immediately with acute worsening symptoms Med/Other Pt SpecificInfo: Prescription(s) given Scripts Albuterol 8.5 GM Inh (Proair Hfa 8.5 GM Inh) 90 Mcg/Act Aer 2 PUFF INH Q4HR Y for SHORTNESS OF BREATH, #1 INHALER 0 Refills 108 mcg/actuation Prov: Felicity Fitzpatrick 08/14/17 Methylprednisolone Dosepak (Medrol Dosepak) 4 Mg Dspk 4 MG PO DIRECTED, #1 DSPK 0 Refills Per Pharmacist direction Prov: Felicity Fitzpatrick 08/14/17 Disposition: 01 DISCHARGE HOME Felicity Fitzpatrick Aug 14, 2017 20:21
[2017-08-14 20:25] VITALS: BP 164/94; PULSE 81; RESP 16; O2SAT 100
[2017-08-14] MEDS ORDERED: RESP: ALBUTEROL 2.5 MG/IPRATROPIUM 0.5 MG NEB (SCH) NEB ONE (20:45)
[2017-08-14] MEDS ORDERED: DEXAMETHASONE SOD PHOS 4 MG/ML VIAL IV PUSH ONE (20:45)
--- NOTE | 2017-08-14 21:24 | RADRPT ---
EXAM DATE: 08/14/2017 9:19 PM EDT AGE/SEX: 32 years / Female INDICATIONS: Cough and chest pain. CLINICAL DATA: This is the patient's initial encounter. Patient reports that signs and symptoms have been present for 1 week and indicates a pain score of 5/10. MEDICAL/SURGICAL HISTORY: . Colitis, anxiety, depression. None. COMPARISON: [facility], CHEST PA & LAT, 03/10/2011. . FINDINGS: PA and lateral views of the chest demonstrate the lungs to be symmetrically aerated without evidence of mass, infiltrate or effusion. The cardiomediastinal contours are unremarkable. Osseous structures are intact. CONCLUSION: No acute cardiopulmonary disease Electronically signed by: Ivan Robles MD 08/14/2017 9:23 PM EDT
[2017-08-14] MEDS ORDERED: MEDR4PAK PO (21:46)
[2017-08-14] MEDS ORDERED: ALBUAER3 INH (21:46)
--- NOTE | 2017-08-15 07:09 | EKG ---
Date Performed: 08/14/2017 Time Performed: 19:28:34 PTAGE: 32 years EKG: Sinus rhythm POSSIBLE LEFT ATRIAL ENLARGEMENT POSSIBLE RIGHT VENTRICULAR CONDUCTION DELAY BORDERLINE ECG PREVIOUS TRACING : 07/26/2016 23.10 No significant change from previous tracing noted. DOCTOR: Dexter Gurrola Interpretating Date/Time 08/15/2017 07:06:53
== END 2017-08-14 21:58 | disposition home or self-care (01) ==
LOC: NEPE 18:29
DX: R07.89 Other chest pain (principal); J06.9 Acute upper respiratory infection, unspecified; R94.31 Abnormal electrocardiogram [ECG] [EKG]; R11.0 Nausea; I10 Essential (primary) hypertension; F41.9 Anxiety disorder, unspecified; F17.290 Nicotine dependence, other tobacco product, uncomplicated; Z88.5 Allergy status to narcotic agent; Z79.899 Other long term (current) drug therapy
CPT/HCPCS: 71046; 93005; 94664; 96374; 99284; J1100